=== PATIENT | male | born 1945 | race Caucasian/White ===

== ENCOUNTER → 2018-02-16 | Outpatient (CLI) | payer OTHER ==
--- NOTE | 2018-02-16 16:22 | RAD ---
History: Left shoulder pain Technique: Three views of the left shoulder Comparison:NONE Findings: The soft tissues are grossly unremarkable. There is no acute fracture or dislocation. there is mi ld AC osteoarthrosis. The acromioclavicular and coracoclavicular intervals are maintained. Impression: 1. Mild AC osteoarthrosis Reported By:
== END | disposition home or self-care (01) | DRG 556 ==
LOC: RAD 09:04
PROVIDERS: ATTEND Nurse Practitioner Family
DX: M25.512 Pain in left shoulder (principal); M19.012 Primary osteoarthritis, left shoulder
CPT/HCPCS: 73030